=== PATIENT | male | born 1955 | race Hispanic/Latino ===

== ENCOUNTER 2021-08-07 07:11 | Observation (INO) | payer OTHER ==
[2021-08-05 14:30] VITALS: BP 134/75
[2021-08-05 14:48] LABS: BASOPHILS % (AUTO) 1.2 % (0.0-5.0); EOSINOPHILS % (AUTO) 1.3 % (0.0-8.0); HEMATOCRIT 48.1 % (42-54); LYMPHOCYTES % (AUTO) 16.7 % (21.0-51.0); MEAN CORPUSCULAR HEMOGLOBIN 27.5 pg (27.0-33.0); MEAN CORPUSCULAR HGB CONC 31.8 g/dL (32.0-36.0); MEAN CORPUSCULAR VOLUME 86.5 fL (79-99); MONOCYTES % (AUTO) 7.8 % (3.0-13.0); NEUTROPHILS % (AUTO) 72.7 % (40.0-77.0); PLATELET COUNT (AUTO) 234 K/uL (130-400); RED BLOOD CELL COUNT(AUTO) 5.56 MIL/uL (4.50-6.20); RED CELL DISTRIBUTION WIDTH 13.2 % (11.0-15.5); WHITE BLOOD COUNT (AUTO) 6.8 K/uL (4.8-10.8)
[2021-08-05 15:14] LABS: CREATININE 0.9 mg/dL (0.5-1.5); POTASSIUM 4.5 mmol/L (3.5-5.1)
[~2021-08-07] VITALS: Ht 185.4 cm; Wt 89.5 kg
[2021-08-07] VITALS (35 sets, daily range): BP systolic 127–153; BP diastolic 64–99
[~2021-08-07 07:11] MED LIST: ROSU10TA28 PO
[2021-08-07] MEDS ORDERED: LACTATED RINGERS 1000ML 1,000 ML IV ONE (07:42)
[2021-08-07] MEDS: CEFTRIAXONE 1G VIAL IVP SCH ×2 (09:00→10:20)
[2021-08-07] MEDS ORDERED: FAMOTIDINE 20MG VIAL IV ONE (09:17)
[2021-08-07] MEDS ORDERED: MIDAZOLAM HCL 1 MG/ML 2ML VIAL ONE ×2 (10:06→18:46)
[2021-08-07] MEDS ORDERED: GLYCOPYRROLATE 1 MG/5 ML SYRINGE ONE ×2 (10:07→19:26)
[2021-08-07] MEDS ORDERED: FENTANYL CITRATE PF 50 MCG/1 ML 2ML VIAL ONE ×4 (10:07→19:35)
[2021-08-07] MEDS ORDERED: PROPOFOL 10 MG/ML 20ML VIAL IV ONE ×2 (10:07→18:46)
[2021-08-07] MEDS ORDERED: LIDOCAINE HCL MPF 1% 5ML VIAL ONE (10:08)
[2021-08-07] MEDS ORDERED: MEPERIDINE-PF 25 MG/ML SYG ONE (10:41)
[2021-08-07] MEDS ORDERED: OPIUM/BELLADONNA ALKALOIDS 1 EACH SUPP.RECT RC ONE (10:50)
[2021-08-07] MEDS ORDERED: PHENAZOPYRIDINE HCL 200 MG TABLET ONE (13:41)
[2021-08-07 18:03] LABS: BASOPHILS % (AUTO) 0.3 % (0.0-5.0); MEAN CORPUSCULAR HEMOGLOBIN 28.1 pg (27.0-33.0); MEAN CORPUSCULAR HGB CONC 32.2 g/dL (32.0-36.0); MEAN CORPUSCULAR VOLUME 87.2 fL (79-99); MONOCYTES % (AUTO) 4.9 % (3.0-13.0); NEUTROPHILS % (AUTO) 90.5 % (40.0-77.0); PLATELET COUNT (AUTO) 237 K/uL (130-400); RED BLOOD CELL COUNT(AUTO) 5.16 MIL/uL (4.50-6.20); RED CELL DISTRIBUTION WIDTH 13.2 % (11.0-15.5); WHITE BLOOD COUNT (AUTO) 14.4 K/uL (4.8-10.8)
[2021-08-07 18:12] LABS: INR 1.06 (0.85-1.15); PROTHROMBIN TIME 11.5 SEC (9.6-11.6)
[2021-08-07 18:14] LABS: PARTIAL THROMBOPLASTIN TIME 24.6 SEC (26.3-35.5)
[2021-08-07] MEDS ORDERED: SUCCINYLCHOLINE 200MG/10ML SYR ONE (18:45)
[2021-08-07] MEDS ORDERED: TRANEXAMIC ACID 1000MG/10ML IV ONE (18:50)
[2021-08-07] MEDS ORDERED: TRANEXAMIC ACID 1000MG/10ML ONE (18:58)
[2021-08-07] MEDS ORDERED: EPHEDRINE SULFATE 50 MG/ML AMPULE ONE (19:05)
[2021-08-07] MEDS ORDERED: ALBUMIN (HUMAN) 25% 50 ML IV ONE (19:18)
[2021-08-07 19:39] LABS: HEMATOCRIT 36.6 % (42-54)
[2021-08-07 20:10] LABS: ABG BASE EXCESS 1.4 mmol/L (-2.0-3.0); ABG HCO3 26.1 mmol/L (21.0-28.0); ABG OXYGEN SATURATION 99.7 % (95.0-99.0); ABG PCO2 42 mmHg (35-48)
[2021-08-07] MEDS ORDERED: ONDANSETRON 4MG INJ IVP PRN (23:00)
[2021-08-07] MEDS ORDERED: MAGNESIUM HYDROXIDE 30 ML/UDCUP PO PRN (23:00)
[2021-08-07] MEDS ORDERED: 0.9%NACL 1000ML 1,000 ML IV SCH (23:00)
[2021-08-07] MEDS ORDERED: ACETAMINOPHEN WITH CODEINE 1 TAB TAB PO PRN (23:00)
[2021-08-08] VITALS (7 sets, daily range): BP systolic 127–148; BP diastolic 62–82
[2021-08-08 05:09] LABS: HEMATOCRIT 35.2 % (42-54)
[2021-08-08 05:20] LABS: POTASSIUM 4.9 mmol/L (3.5-5.1)
[2021-08-08] MEDS ORDERED: CEFTRIAXONE 1G VIAL IVP SCH (08:00)
[2021-08-08] MEDS ORDERED: PHENAZOPYRIDINE HCL 200 MG TABLET PO SCH (09:00)
[2021-08-08] MEDS ORDERED: OXYBUTYNIN CHLORIDE 5 MG TABLET PO SCH (09:00)
[2021-08-08] MEDS ORDERED: PANTOPRAZOLE 40 MG TAB DR PO SCH (09:00)
[2021-08-08] MEDS ORDERED: CEPH500B PO ×2 (15:42)
[2021-08-08] MEDS ORDERED: PHEN-846 PO ×2 (15:44)
== END 2021-08-08 17:00 | disposition home or self-care (01) ==
LOC: DAH 07:11 → DAHIP 07:12 → 3BH 21:37
PROVIDERS: ADMIT Urology; ATTEND Urology
DX: N40.1 Benign prostatic hyperplasia with lower urinary tract symptoms (principal); Z20.822 Contact with and (suspected) exposure to COVID-19; R31.9 Hematuria, unspecified; R33.8 Other retention of urine; Z85.46 Personal history of malignant neoplasm of prostate; Z79.899 Other long term (current) drug therapy; Z98.890 Other specified postprocedural states
CPT/HCPCS: 36415 ×3; 36600; 52001; 52214; 52648; 80048 ×2; 82435; 82803; 82947; 82948; 83605; 84132; 84295; 85014 ×2; 85018 ×3; 85025 ×2; 85610; 85730; 86850; 86900; 86901; 87635; 93005; 96374; A4215; A4221; A4222; A4223; A4335 ×2; A4340; A4354; A4358 ×3; A4520; A4554; A4663; A5113; A6260; A6402; C1758 ×2; C9803; G0378 ×22; J0330; J0696 ×2; J2175; J2250 ×2; J2704 ×2; J3010 ×4; J3490 ×7; J7030; J7120 ×3; P9047

== ENCOUNTER 2021-08-10 15:44 | Emergency (ER) | payer OTHER ==
[~2021-08-10] VITALS: Ht 185.4 cm; Wt 88.9 kg
[~2021-08-10 15:44] MED LIST changes: +CEPH500B PO; +PHEN-846 PO
[2021-08-10 15:49] VITALS: BP 122/59
== END 2021-08-10 17:09 | disposition home or self-care (01) ==
LOC: EDH 15:44
DX: T83.031A Leakage of indwelling urethral catheter, initial encounter (principal); E78.00 Pure hypercholesterolemia, unspecified; Z79.899 Other long term (current) drug therapy; Z98.890 Other specified postprocedural states

== ENCOUNTER 2023-12-23 06:57 | Day surgery (SDC) | payer MEDICARE ==
[2023-12-21 12:19] VITALS: BP 141/65; PULSE 65; RESP 18; TEMP 98.4
[2023-12-21 12:20] LABS: BASOPHILS # (AUTO) 0.05 K/uL (0.00-0.20); EOSINOPHILS # (AUTO) 0.14 K/uL (0.00-0.70); EOSINOPHILS % (AUTO) 2.7 % (0.0-8.0); HEMATOCRIT 45.6 % (42-54); IMMATURE GRANULOCYTE ABSOLUTE 0.01 K/uL (0-1); LYMPHOCYTES # (AUTO) 1.2 K/uL (1.0-4.8); LYMPHOCYTES % (AUTO) 22.3 % (21.0-51.0); MEAN CORPUSCULAR HEMOGLOBIN 27.9 pg (27.0-33.0); MONOCYTES # (AUTO) 0.4 K/uL (0.1-1.0); NEUTROPHILS # (AUTO) 3.5 K/uL (1.8-7.7); NEUTROPHILS % (AUTO) 65.8 % (40.0-77.0); PLATELET COUNT (AUTO) 226 K/uL (130-400); RED BLOOD CELL COUNT(AUTO) 5.24 MIL/uL (4.50-6.20); RED CELL DISTRIBUTION WIDTH 13.4 % (11.0-15.5); WHITE BLOOD COUNT (AUTO) 5.2 K/uL (4.8-10.8)
[2023-12-21 12:33] LABS: POTASSIUM 4.5 mmol/L (3.5-5.1)
[~2023-12-23] VITALS: Ht 185.4 cm; Wt 84.8 kg
[2023-12-23] VITALS (16 sets, daily range): BP systolic 128–157; BP diastolic 64–85; PULSE 60–83; RESP 13–17; TEMP 97–97.8
[~2023-12-23 06:57] MED LIST changes: +ASPI-1443 PO; -CEPH500B PO; +LACTATED RINGERS 1000ML 1,000 ML IV ONE; -PHEN-846 PO; -ROSU10TA28 PO; +ROSU10TA72 PO; +cefTRIAXone 1G VIAL ONE
[2023-12-23] MEDS ORDERED: cefTRIAXone 1G VIAL IVPB SCH (07:00)
[2023-12-23] MEDS ORDERED: FAMOTIDINE 20MG VIAL IV ONE (07:41)
[2023-12-23] MEDS ORDERED: LIDOCAINE PF 100MG/5ML (2%) SYRINGE 5ML ONE (07:44)
[2023-12-23] MEDS ORDERED: dexaMETHasone SOD PHOSPHATE 10MG/ML 1ML VIAL ONE (07:44)
[2023-12-23] MEDS ORDERED: proPOFol 10 MG/ML 20ML VIAL IV ONE (07:45)
[2023-12-23] MEDS ORDERED: ondanSETRON 4MG INJ ONE (07:45)
[2023-12-23] MEDS ORDERED: MIDAZOLAM HCL 1 MG/ML 2ML VIAL ONE (07:45)
[2023-12-23] MEDS ORDERED: NEOSTIGMINE METHYLSULFATE 1MG/ML IV ONE (07:45)
[2023-12-23] MEDS ORDERED: SUCCINYLCHOLINE CHLORIDE 20 MG/ML 10 ML VIAL ONE (07:45)
[2023-12-23] MEDS ORDERED: rocuRONium bROMide 10MG/1ML 5ML VL ONE (07:45)
[2023-12-23] MEDS ORDERED: GLYCOPYRROLATE 0.2 MG/ML 5 ML VIAL ONE (07:45)
[2023-12-23] MEDS ORDERED: FENTanyl CITRate PF 50 MCG/1 ML 2ML VIAL ONE (07:46)
[2023-12-23] MEDS: PHENAZOpyridine HCL 200 MG TAB 200 MG TABLET PO ONE (10:36)
[2023-12-23] MEDS ORDERED: AMOX-426 PO (10:41)
[2023-12-23] MEDS ORDERED: PHEN-846 PO (10:42)
[2023-12-23] MEDS ORDERED: TRAM100C2 PO (10:43)
== END 2023-12-23 11:05 | disposition home or self-care (01) ==
LOC: DAH 06:57
PROVIDERS: ATTEND Urology
DX: N32.0 Bladder-neck obstruction (principal); N40.1 Benign prostatic hyperplasia with lower urinary tract symptoms; N41.0 Acute prostatitis; N41.1 Chronic prostatitis; R31.0 Gross hematuria; N40.3 Nodular prostate with lower urinary tract symptoms; D18.03 Hemangioma of intra-abdominal structures; I25.10 Atherosclerotic heart disease of native coronary artery without angina pectoris; Z85.46 Personal history of malignant neoplasm of prostate; Z79.899 Other long term (current) drug therapy
CPT/HCPCS: 80048; 85025; 36415; 52630; 52276; 88305; 93005; A6260; A4663; A4354; A4340; J7120; J3490 ×3; J3010; J1100; J0330; J2003; J0696; J2250; J2704; J2405; J2710; A4358; A4215; A4223; A4213; A4222; A4221; A4510; A4600